=== PATIENT | male | born 1970 | race Hispanic/Latino ===

== ENCOUNTER 2018-02-05 12:26 | Emergency (ER) | payer SELFPAY ==
[2018-02-05] MEDS ORDERED: KETOROLAC TROMETHAMINE 60 MG/2 ML VIAL ONE (13:16)
[2018-02-05 13:53] LABS: APPEARANCE,URINE Clear (CLEAR); BILIRUBIN,URINE Negative (NEGATIVE); COLOR,URINE Dark Yellow (YELLOW); GLUCOSE, URINE (UA) Negative (NEGATIVE); KETONES,URINE Negative (NEGATIVE); LEUKOCYTE ESTERASE ,URINE Trace (NEGATIVE); NITRATE,URINE Negative (NEGATIVE); OCCULT BLOOD,URINE Negative (NEGATIVE); PROTEIN,URINE Negative (NEGATIVE)
[2018-02-05 13:58] LABS: BACTERIA,URINE Rare /HPF (None Seen); MUCUS,URINE Moderate LPF (None Seen); RBC,URINE 0-1 /HPF (0-1); SQUAMOUS EPITHELIAL CELL,UR Rare /HPF (0-2)
== END 2018-02-05 15:13 | disposition home or self-care (01) ==
LOC: EDH 12:26
DX: N50.82 Scrotal pain (principal); M54.5 Low back pain; Z72.0 Tobacco use
CPT/HCPCS: 76870; 81001; 87486; 87797; 96372; 99285; J1885

== ENCOUNTER 2018-03-25 08:50 | Observation (INO) | payer SELFPAY ==
[2018-03-25 09:16] LABS: BASOPHILS % (AUTO) 0.9 % (0.0-5.0); EOSINOPHILS % (AUTO) 3.3 % (0.0-8.0); HEMATOCRIT 43.6 % (42-54); LYMPHOCYTES % (AUTO) 28.3 % (21.0-51.0); MEAN CORPUSCULAR HEMOGLOBIN 32.7 pg (27.0-33.0); MEAN CORPUSCULAR HGB CONC 34.4 g/dL (32.0-36.0); MEAN CORPUSCULAR VOLUME 94.9 fL (79-99); MONOCYTES % (AUTO) 13.5 % (3.0-13.0); NUCLEATED RED BLOOD CELLS 0.1 % (0.0-0.19); PLATELET COUNT (AUTO) 274 K/uL (130-400); RED BLOOD CELL COUNT(AUTO) 4.59 MIL/uL (4.50-6.20); WHITE BLOOD COUNT (AUTO) 7.4 K/uL (4.8-10.8)
[2018-03-25 09:25] LABS: CREATININE 0.9 mg/dL (0.5-1.5); POTASSIUM 3.5 mmol/L (3.5-5.1)
[2018-03-25 09:25] LABS: AMPHET/METH SCREEN,URINE NEGATIVE (NEGATIVE); BARBITURATE SCREEN, URINE NEGATIVE (NEGATIVE); BENZODIAZEPINES SCREEN,URINE NEGATIVE (NEGATIVE); CANNABINOID SCREEN,URINE NEGATIVE (NEGATIVE); COCAINE SCREEN,URINE NEGATIVE (NEGATIVE); OPIATE SCREEN,URINE NEGATIVE (NEGATIVE); PHENCYCLIDINE SCREEN,URINE NEGATIVE (NEGATIVE)
[2018-03-25 09:41] LABS: ALBUMIN 2.8 g/dL (3.5-5.0); BILIRUBIN,TOTAL 0.4 mg/dL (0.2-1.0); CREATINE KINASE MB 1.8 ng/mL (0.5-3.6)
[2018-03-25] MEDS ORDERED: ACETAMINOPHEN 325 MG TAB PO PRN (14:30)
[2018-03-25] MEDS ORDERED: ONDANSETRON HCL MDV 20ML 2 MG/ML VIAL IVP PRN (14:30)
[2018-03-25] MEDS ORDERED: NITROGLYCERIN 0.4 MG SL TAB SL PRN (14:30)
[2018-03-25 15:11] LABS: CHOLESTEROL 135 mg/dL (<200); HDL CHOLESTEROL 40 mg/dL (29-71); LDL DIRECT 81 mg/dL (0-99); TRIGLYCERIDES 156 mg/dL (30-200)
[2018-03-26] MEDS ORDERED: ASPIRIN 81MG TAB.CHEW PO SCH (09:00)
== END 2018-03-25 15:40 | disposition left against medical advice (07) ==
LOC: EDH 08:50 → EDHIP 08:51
PROVIDERS: ADMIT Internal Medicine Nephrology; ATTEND Internal Medicine Nephrology
DX: I20.0 Unstable angina (principal); E78.5 Hyperlipidemia, unspecified; F17.210 Nicotine dependence, cigarettes, uncomplicated; Z86.73 Personal history of transient ischemic attack (TIA), and cerebral infarction without residual deficits
CPT/HCPCS: 36415; 80053; 80061; 80305; 82550; 82553; 84484 ×2; 85025; 93005 ×2; 99285; G0378 ×7

== ENCOUNTER 2018-04-18 08:53 | Emergency (ER) | payer SELFPAY ==
[2018-04-18] MEDS ORDERED: ASPIRIN 325 MG TABLET ONE (09:20)
[2018-04-18 09:21] LABS: BASOPHILS % (AUTO) 0.5 % (0.0-5.0); EOSINOPHILS % (AUTO) 1.3 % (0.0-8.0); HEMATOCRIT 44.9 % (42-54); LYMPHOCYTES % (AUTO) 12.4 % (21.0-51.0); MEAN CORPUSCULAR HEMOGLOBIN 32.3 pg (27.0-33.0); MEAN CORPUSCULAR HGB CONC 34.2 g/dL (32.0-36.0); MEAN CORPUSCULAR VOLUME 94.4 fL (79-99); MONOCYTES % (AUTO) 7.7 % (3.0-13.0); NEUTROPHILS % (AUTO) 78.1 % (40.0-77.0); PLATELET COUNT (AUTO) 253 K/uL (130-400); RED BLOOD CELL COUNT(AUTO) 4.76 MIL/uL (4.50-6.20); WHITE BLOOD COUNT (AUTO) 12.1 K/uL (4.8-10.8)
[2018-04-18 09:28] LABS: POTASSIUM 3.3 mmol/L (3.5-5.1)
[2018-04-18 09:32] LABS: INR 0.9 (0.85-1.15); PARTIAL THROMBOPLASTIN TIME 25.1 SEC (26.3-35.5); PROTHROMBIN TIME 9.5 SEC (9.6-11.6)
[2018-04-18 09:44] LABS: ALBUMIN 3.1 g/dL (3.5-5.0); BILIRUBIN,TOTAL 0.2 mg/dL (0.2-1.0); CREATINE KINASE MB 1.6 ng/mL (0.5-3.6); TOTAL PROTEIN, SERUM 6.9 g/dL (6.0-8.3)
== END 2018-04-18 13:00 | disposition home or self-care (01) ==
LOC: EDH 08:53
DX: R07.89 Other chest pain (principal); Z86.73 Personal history of transient ischemic attack (TIA), and cerebral infarction without residual deficits; Z87.891 Personal history of nicotine dependence
CPT/HCPCS: 36415; 71045; 80053; 82550; 82553; 83874; 84484; 85025; 85610; 85730; 93005; 94761; 99291

== ENCOUNTER 2018-08-02 10:59 | Emergency (ER) | payer SELFPAY ==
[2018-08-02] MEDS ORDERED: IBUPROFEN 600 MG TABLET ONE (12:01)
== END 2018-08-02 12:16 | disposition home or self-care (01) ==
LOC: EDH 10:59
DX: S30.1XXA Contusion of abdominal wall, initial encounter (principal); Z86.73 Personal history of transient ischemic attack (TIA), and cerebral infarction without residual deficits; X58.XXXA Exposure to other specified factors, initial encounter; Y93.89 Activity, other specified; Y92.89 Other specified places as the place of occurrence of the external cause; Y99.8 Other external cause status
CPT/HCPCS: 99282

== ENCOUNTER 2022-05-29 12:44 | Emergency (ER) | payer OTHER ==
[~2022-05-29] VITALS: Ht 175.3 cm; Wt 85.7 kg
[~2022-05-29 12:44] MED LIST: NAPR-1196 PO
[2022-05-29 13:11] LABS: BASOPHILS % (AUTO) 0.5 % (0.0-5.0); EOSINOPHILS % (AUTO) 0.3 % (0.0-8.0); LYMPHOCYTES % (AUTO) 9.7 % (21.0-51.0); MEAN CORPUSCULAR HGB CONC 34.5 g/dL (32.0-36.0); MEAN CORPUSCULAR VOLUME 89.7 fL (79-99); MONOCYTES % (AUTO) 7.8 % (3.0-13.0); PLATELET COUNT (AUTO) 379 K/uL (130-400); RED BLOOD CELL COUNT(AUTO) 5.46 MIL/uL (4.50-6.20); RED CELL DISTRIBUTION WIDTH 13.7 % (11.0-15.5); WHITE BLOOD COUNT (AUTO) 14.4 K/uL (4.8-10.8)
[2022-05-29] MEDS ORDERED: MECLIZINE HCL 12.5 MG TABLET PO ONE (13:30)
[2022-05-29 13:33] LABS: CREATININE 1.3 mg/dL (0.5-1.5); POTASSIUM 4.1 mmol/L (3.5-5.1)
[2022-05-29 13:38] LABS: TOTAL PROTEIN, SERUM 7.7 g/dL (6.0-8.3)
[2022-05-29 14:00] LABS: APPEARANCE,URINE CLOUDY (CLEAR); BILIRUBIN,URINE MODERATE (NEGATIVE); COLOR,URINE YELLOW (YELLOW); GLUCOSE, URINE (UA) NEGATIVE (NEGATIVE); KETONES,URINE >=80 mg/dL (NEGATIVE); LEUKOCYTE ESTERASE ,URINE NEGATIVE (NEGATIVE); NITRATE,URINE NEGATIVE (NEGATIVE); OCCULT BLOOD,URINE TRACE-INTACT (NEGATIVE); PROTEIN,URINE 100 mg/dL (NEGATIVE)
[2022-05-29 14:04] LABS: AMPHET/METH SCREEN,URINE NEGATIVE (NEGATIVE); BARBITURATE SCREEN, URINE NEGATIVE (NEGATIVE); BENZODIAZEPINES SCREEN,URINE NEGATIVE (NEGATIVE); CANNABINOID SCREEN,URINE NEGATIVE (NEGATIVE); COCAINE SCREEN,URINE POSITIVE (NEGATIVE); OPIATE SCREEN,URINE NEGATIVE (NEGATIVE); PHENCYCLIDINE SCREEN,URINE NEGATIVE (NEGATIVE)
[2022-05-29 14:06] LABS: BACTERIA,URINE Rare /HPF (None Seen); MUCUS,URINE Many LPF (None Seen); RBC,URINE 0-1 /HPF (0-1); SQUAMOUS EPITHELIAL CELL,UR Rare /HPF (0-2)
[2022-05-29] MEDS ORDERED: 0.9%NACL 1000ML 1,000 ML IV ONE (14:30)
[2022-05-29 14:47] VITALS: BP 150/99
== END 2022-05-29 16:23 | disposition home or self-care (01) ==
LOC: EDH 12:44
DX: F14.10 Cocaine abuse, uncomplicated (principal); R42 Dizziness and giddiness; R07.89 Other chest pain; R11.0 Nausea; Z20.822 Contact with and (suspected) exposure to COVID-19; M19.90 Unspecified osteoarthritis, unspecified site; Z79.1 Long term (current) use of non-steroidal anti-inflammatories (NSAID)
CPT/HCPCS: 99284; 96360; 87635; 82550; 84484; 80053; 80305; 85025; 87088; 36415; 93005; 81001; C9803; J7030